=== PATIENT | male | born 1940 | race Caucasian/White ===

== ENCOUNTER → 2016-04-23 | Outpatient (CLI) | payer OTHER ==
[~2016-04-23] MED LIST: AUGMENTIN 500-1 EACH PO; AVODART0.5 MG PO; BACTRIM DS TAB1 EACH PO; CALCIUM 500 +1 EAC5 PO; FISH OIL 1,001000 M2 PO; FLOMAX PO; GLUCOSAMINE HC500 MG PO; HYDROCODON-ACE1 EAC7 PO; METAMUCIL0.52 GM PO; OXYCODONE HCL 55 MG PO; ROCEPHIN 11 GM/1001 IV; SIMVASTATIN20 MG PO
== END ==
LOC: OPONC 02:04
DX: C15.5 Malignant neoplasm of lower third of esophagus (principal)
CPT/HCPCS: 91018

== ENCOUNTER 2017-03-10 13:24 | Emergency (ER) | payer OTHER ==
[~2017-03-10] VITALS: Ht 180.3 cm; Wt 59.0 kg
[2017-03-10] MEDS ORDERED: ZOFRAN ODT4 MG DISSOLVE (13:35)
[2017-03-10] MEDS ORDERED: LORAZEPAM 0.50.5 M1 PO (13:41)
[2017-03-10] MEDS ORDERED: BISACODYL SUPP10 MG RECTAL (15:09)
== END 2017-03-10 16:38 | disposition home or self-care (01) ==
LOC: ER 13:24
DX: K59.00 Constipation, unspecified (principal); E78.5 Hyperlipidemia, unspecified; M17.9 Osteoarthritis of knee, unspecified; F17.210 Nicotine dependence, cigarettes, uncomplicated; Z85.828 Personal history of other malignant neoplasm of skin; Z98.890 Other specified postprocedural states